=== PATIENT | male | born 1940 | race Caucasian/White ===

== ENCOUNTER 2021-06-27 12:06 | Emergency (ER) | payer OTHER ==
--- OUTSIDE RECORDS SUMMARY | 2021-06-27 12:13 | XMS REPORT | Continuity of Care Document ---
:1940 Author Organization [facility] t Address [address] [place] [address] Dr. Lezama [address] [place] [id number] Care Team Providers Name Role Phone Jayson MC Primary Care Physician CHAPARRO Attending Clinician Unavailable Pb De Leon NP Attending Clinician Martita Attending Clinician Unavailable MALLY Attending Clinician Unavailable Doctor Unassigned, Name Attending Clinician Unavailable Therapy, Covid Infusion Attending Clinician Unavailable Renuka Medina MD Attending Clinician Renuka MEDINA Attending Clinician Unavailable Miles MC Attending Clinician Jorden Medina PA-C Attending Clinician Danilo Canchola MD Attending Clinician Jayson MC Attending Clinician Nelida Rodríguez MD Attending Clinician Jayson MC Attending Clinician JAYSON Attending Clinician Unavailable Brayan Beauchamp MD Attending Clinician BRAYAN BEAUCHAMP Attending Clinician Unavailable JASIEL Attending Clinician Unavailable Jasiel RICHTER Attending Clinician CHAPARRO Admitting Clinician Unavailable MALLY Admitting Clinician Unavailable Payers Payer Name Policy Type Policy Number Effective Date Expiration Date S ource Problems Condition Condition Condition Status Onset Resolution Last Treating Co mments Source Name Details Category Date Date Treatment Clinician Date Delirium Delirium Disease Active Metho di 1-06 [facility] 00:[facility]: Hospita 00 l Essential Essential Disease Active Uni vers hypertensi hypertensi 7-14 it y of on on 00:00: [place] [facility] Carotid Carotid Disease Active Univers stenosis, stenosis, 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 00:00: [place] [facility] 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 00:00: [place] [facility] SDH SDH Disease Active Univers (subdural (subdural 5-12 ity of hematoma[place] hematoma[place] Allergies, Adverse Reactions, Alerts Allergy Allergy Status Severity Reaction(s) Onset Inactive Treating Comm ents Source Name Type Date Date Clinician Gurjit Donovan Active Other (See 2020-05 Blisters Methodi tazone ty to Comments) [address] adverse 00:00: the body Hospita reaction 00 l s to drug BUTINOLI DRUG Active Rash Univers NE INGREDI 5-15 ity of 00:00: [place] [facility] Butinoli Propensi Active Rash Univer s ne ty to 5-15 ity of adverse 00:00: [place] reaction 00 Medical s Branch Social History Social Habit Start Date Stop Date Quantity Comments Source Exposure to Not sure [facility] SARS-CoV-2 (event) Hospit al Cigarettes smoked 2021-05-13 2021-05-[address] current (pack per 00:00:00 00:00:00 Hospita l day) - Reported Cigarette 2021-05-13 2021-05-13 [facility] pack-years 00:00:00 00:00:00 Hospital Tobacco use and 2021-05-13 2021-05-13 Smokeless [facility] exposure 00:00:00 00:00:00 tobacco non-user Hospital Alcohol intake 2019-06-28 2019-06-28 Current University of 00:00:00 00:00:00 non-drinker of [facility] [place] alcohol Branch (finding) History of tobacco 2001-11-17 Smoker Univer sity of use 00:00:00 [facility] Sex Assigned At [birth year] [facility] 00:00:00 00:00:00 Hospital Smoking Status Start Date Stop Date Source Ex-smoker 2021-05-13 00:00:00 2021-05-13 00:00:00 [facility] Medications Ordered Filled Start Stop Current Ordering Indication Dosage Frequency Signature Comments Components Source Medication Medication Date Date Medication? Clinician (SIG) Name Name ascorbic Yes 1000mg Q.5D Take 1,000 M ethodi acid, 1-[address] vitamin C, 12:36: mouth 2 [facility] (VITAMIN C) 03 (two) l 500 MG times a tablet day. zinc Yes 1{capsu QD Take 1 Methodi sulfate 1-12 le} capsule by st (ZINCATE) 12:36: mouth Hospita 50 mg zinc 03 daily. l (220 mg) capsule cholecalcif Yes 2000U QD Take 2,000 Methodi donnell, 1-[address] vitamin D3, 12:36: mouth Hospi ta 400 unit 03 daily. l tablet megestroL 2021- Yes [id number] 40mg QD Take 1 M ethodi (MEGACE) 40 05-18 tablet (40 s t MG tablet 00:00: 05:59 mg total) Ho spita 00 :00 by mouth l daily for 30 days. vitamin E 2021- Yes 400U QD Take 1 Metho di 400 UNIT 05-[address] capsule 00:00: 05:59 (400 Units Hos bryson 00 :00 total) by l mouth daily for 30 days. carvediloL Yes 25mg Q.5D Take 25 mg M ethodi (COREG) 25 1-[address] MG tablet 12:36: (two) Hospita 32 times a l day with meals. lisinopriL Yes 40mg QD Take 40 mg M ethodi (PRINIVIL) 1-[address] 40 mg 12:36: daily. Hospita tablet 32 l furosemide Yes 80mg QD Take 80 mg M ethodi (LASIX) 80 1-[address] mg tablet 12:36: daily. Hospit a 32 l potassium Yes 20meq QD Take 20 Meth [place] chloride 1-[address] (K-DUR) 20 12:36: mouth Hospit a MEQ CR 32 daily. l tablet aspirin 325 0 Yes 325mg QD Take 325 M ethodi MG tablet 1-[address] 12:36: mouth Hospita 32 daily. l amLODIPine Yes 2.5mg QD Take 2.5 Me thodi (NORVASC) 1-[address] 2.5 mg 12:36: mouth Hospita tablet 32 daily. l clopidogreL Yes 75mg QD Take 75 mg Methodi (PLAVIX) [address] mg tablet 12:36: daily. Hospit a 32 l atorvastati 2021- Yes 40mg QD Take 1 Met hodi n (LIPITOR) 05-17 tablet (40 s t 40 mg 00:00: 05:59 mg total) Hospit a tablet 00 :00 by mouth l nightly for 30 days. levoFLOXaci 2021- No 500mg QD Take 1 Me thodi n 05-[address] (Levaquin) 00:00: 05:59 (500 mg Hos bryson 500 MG 00 :00 total) by l tablet mouth daily for 3 days. casirivimab 2020-05- No [id number] 1200mg 1,200 mg, Univers -imdevimab 06-27 Subcutaneo it y of (REGEN-COV 23:30: 22:15 [place], ONCE, [place] (EUA)) 00 :00 1 dose, On Medical injection e Branch (CO-FORMULA 04/26/21 TION) 1,200 at 1730, mg Routine iohexol 2019-05 No 100mL 100 mL, Unive rs (OMNIPAQUE 06-20 Intravenou it y of 350 21:30: 21:15 s, ONCE, 1 [place] BULK-100 00 :00 dose, Mon Medica l mL) 04/19/20 Branch injection at 1530, 100 mL Routine clindamycin 0 Yes [id number] 150mg Take 1 Univers 150 mg 8-13 capsule by ity of capsule 00:00: mouth 4 [place] 00 (four) Medical times Branch daily. clindamycin 0 Yes [id number] 150mg Take 1 Univers 150 mg 8-13 capsule by ity of capsule 00:00: mouth 4 [place] 00 (four) Medical times Branch daily. clindamycin 0 Yes [id number] 150mg Take 1 Univers 150 mg 8-13 capsule by ity of capsule 00:00: mouth 4 00 (four) Medical times Branch daily. clindamycin 2020-0 Yes [id number] 150mg Take 1 Univers 150 mg 8-13 capsule by ity of capsule 00:00: mouth 4 (four) Medical times Branch daily. clindamycin 2020-0 Yes [id number] 150mg Take 1 Univers 150 mg 8-13 capsule by ity of capsule 00:00: mouth 4 00 (four) Medical times Branch daily. clindamycin 2020-0 Yes [id number] 150mg Take 1 Univers 150 mg 8-04 capsule by ity of capsule 00:00: mouth 4 (four) Medical times Branch daily. mupirocin 2 2020-0 Yes [id number] Apply to Univers % ointment 8-04 area(s) 3 ity of 00:00: (three) [place] 00 times Medical daily. Branch clindamycin 2020-0 Yes [id number] 150mg Take 1 Univers 150 mg 8-04 capsule by ity of capsule 00:00: mouth 4 [place] (four) Medical times Branch daily. mupirocin 2 2020-0 Yes [id number] Apply to Univers % ointment 8-04 area(s) 3 ity of 00:00: (three) [place] 00 times Medical daily. Branch mupirocin 2 2020-0 Yes [id number] Apply to Univers % ointment 8-04 area(s) 3 ity of 00:00: (three) [place] 00 times Medical daily. Branch mupirocin 2 2020-0 Yes [id number] Apply to Univers % ointment 8-04 area(s) 3 ity of 00:00: (three) [place] 00 times Medical daily. Branch mupirocin 2 2020-0 Yes [id number] Apply to Univers % ointment 8-04 area(s) 3 ity of 00:00: (three) [place] 00 times Medical daily. Branch mupirocin 2 2020-0 Yes [id number] Apply to Univers % ointment 8-04 area(s) 3 ity of 00:00: (three) [place] 00 times Medical daily. Branch mupirocin 2 2020-0 Yes [id number] Apply to Univers % ointment 8-04 area(s) 3 ity of 00:00: (three) [place] 00 times Medical daily. Branch clindamycin 2020- No [id number] 150mg Take 1 Univers 150 mg 8-08 12-13 capsule by ity of capsule 00:00: 00:00 mouth 4 00 :00 (four) Medical times [place] daily. cephALEXin 2019- Yes [id number] 500mg Take 1 Univers 500 mg 7-27 tablet by ity of tablet 00:00: mouth [place] 00 (four) Medical times [place] daily. cephALEXin 2019- Yes [id number] 500mg Take 1 Univers 500 mg 7-27 tablet by ity of tablet 00:00: mouth [place] 00 (four) Medical times [place] daily. cephALEXin 2019- 2020- No [id number] 500mg Take 1 Univers 500 mg 7-27 08-04 tablet by ity of tablet 00:00: 00:00 mouth 4 [place] 00 :00 (four) Medical times [place] daily. cephALEXin 2019- 2020- No [id number] 500mg Take 1 Univers 500 mg 7-27 08- tablet by ity of tablet 00:00: 00:00 mouth 4 [place] 00 :00 (four) Medical times [place] daily. tetanus-dip 2020- No .5mL 0.5 mL, Un patricio htheria 06-29 Intramuscu ity o f toxoids 00:30: 23:29 lar, ONCE, Simon as (TDVAX) 2-2 00 :00 1 dose, Medic al Lf unit/0.5 Sat Branch mL 06/28/19 at injection 1830, 0.5 mL Routine azithromyci 2018-05 Yes [id number] 500mg Take 1 Univers n 500 mg 2-13 tablet by ity of tablet 00:00: mouth [place] 00 daily. Medical Branch azithromyci 2018-05 Yes [id number] 500mg Take 1 Univers n 500 mg 2-13 tablet by ity of tablet 00:00: mouth [place] 00 daily. Medical Branch azithromyci 2018-05 Yes [id number] 500mg Take 1 Univers n 500 mg 2-13 tablet by ity of tablet 00:00: mouth [place] 00 daily. Medical Branch azithromyci 2018-05 Yes [id number] 500mg Take 1 Univers n 500 mg 2-13 tablet by ity of tablet 00:00: mouth [place] 00 daily. Medical Branch azithromyci 2018-05 Yes [id number] 500mg Take 1 Univers n 500 mg 2-13 tablet by ity of tablet 00:00: mouth [place] 00 daily. Medical Branch azithromyci 2018-05 Yes [id number] 500mg Take 1 Univers n 500 mg 2-13 tablet by ity of tablet 00:00: mouth [place] 00 daily. Medical Branch azithminervayci 2018-05 2020- No [id number] 500mg Take 1 Univers n 500 mg 2-13 08-04 tablet by ity o f tablet 00:00: 00:00 mouth [place] 00 :00 daily. Medical Branch azithminervayci 2018-05 2020- No [id number] 500mg Take 1 Univers n 500 mg 2-13 08-04 tablet by ity o f tablet 00:00: 00:00 mouth [place] 00 :00 daily. Medical Branch aspirin 325 2018-05 Yes 325mg Take 325 U nivers mg tablet 1-13 mg by ity of 21:15: mouth [place] 21 daily. Medical Branch carvedilol 2018-05 Yes 25mg Take 25 mg U nivers 25 mg 1-13 by mouth 2 ity of tablet 21:15: (two) [place] 21 times Medical daily with Branch meals. KCL 2018-05 Yes 20meq Take 20 Univers (KLOR-CON 1-13 mEq by ity of M20) 20 mEq 21:15: mouth [place] tablet 21 daily. Medical Branch lisinopril 2018-05 Yes 40mg Take 40 mg U nivers 40 mg 1-13 by mouth ity of tablet 21:15: daily. [place] [address] Medical Branch furosemide 2018-05 Yes 80mg Take 80 mg U nivers 80 mg 1-13 by mouth ity of tablet 21:15: daily. [place] [address] Medical Branch aspirin 325 2018-05 Yes 325mg Take 325 U nivers mg tablet 1-13 mg by ity of 21:15: mouth [place] 21 daily. Medical Branch aspirin 325 2018-05 Yes 325mg Take 325 U nivers mg tablet 1-13 mg by ity of 21:15: mouth [place] 21 daily. Medical Branch carvedilol 2018-05 Yes 25mg Take 25 mg U nivers 25 mg 1-13 by mouth 2 ity of tablet 21:15: (two) [place] 21 times Medical daily with Branch meals. KCL 2018-05 Yes 20meq Take 20 Univers (KLOR-CON 1-13 mEq by ity of M20) 20 mEq 21:15: mouth [place] tablet 21 daily. Medical Branch lisinopril 2018-05 Yes 40mg Take 40 mg U nivers 40 mg 1-13 by mouth ity of tablet 21:15: daily. [place] [address] Medical Branch furosemide 2018-05 Yes 80mg Take 80 mg U nivers 80 mg 1-13 by mouth ity of tablet 21:15: daily. [place] [address] Medical Branch carvedilol 2018-05 Yes 25mg Take 25 mg U nivers 25 mg 1-13 by mouth 2 ity of tablet 21:15: (two) [place] 21 times Medical daily with Branch meals. aspirin 325 2018-05 Yes 325mg Take 325 U nivers mg tablet 1-13 mg by ity of 21:15: mouth [place] 21 daily. [facility] Branch carvedilol 2018-05 Yes 25mg Take 25 mg U nivers 25 mg 1-13 by mouth 2 ity of tablet 21:15: (two) [place] 21 times Medical daily with Branch meals. KCL 2018-05 Yes 20meq Take 20 Univers (KLOR-CON 1-13 mEq by ity of M20) 20 mEq 21:15: mouth [place] tablet 21 daily. Medical Branch KCL 2018-05 Yes 20meq Take 20 Univers (KLOR-CON 1-13 mEq by ity of M20) 20 mEq 21:15: mouth [place] tablet 21 daily. [facility] Branch lisinopril 2018-05 Yes 40mg Take 40 mg U nivers 40 mg 1-13 by mouth ity of tablet 21:15: daily. [place] [address] Medical Branch furosemide 2018-05 Yes 80mg Take 80 mg U nivers 80 mg 1-13 by mouth ity of tablet 21:15: daily. [address] Branch lisinopril 2018-05 Yes 40mg Take 40 mg U nivers 40 mg 1-13 by mouth ity of tablet 21:15: daily. [place] [address] Medical Branch furosemide 2018-05 Yes 80mg Take 80 mg U nivers 80 mg 1-13 by mouth ity of tablet 21:15: daily. [address] Branch aspirin 325 2018-05 Yes 325mg Take 325 U nivers mg tablet 1-13 mg by ity of 21:15: mouth [place] 21 daily. Medical Branch carvedilol 2018-05 Yes 25mg Take 25 mg U nivers 25 mg 1-13 by mouth 2 ity of tablet 21:15: (two) [place] 21 times Medical daily with Branch meals. KCL 2018-05 Yes 20meq Take 20 Univers (KLOR-CON 1-13 mEq by ity of M20) 20 mEq 21:15: mouth [place] tablet 21 daily. Medical Branch lisinopril 2018-05 Yes 40mg Take 40 mg U nivers 40 mg 1-13 by mouth ity of tablet 21:15: daily. [place] [address] Medical Branch furosemide 2018-05 Yes 80mg Take 80 mg U nivers 80 mg 1-13 by mouth ity of tablet 21:15: daily. [place] [address] Medical Branch aspirin 325 2018-05 Yes 325mg Take 325 U nivers mg tablet 1-13 mg by ity of 21:15: mouth [place] 21 daily. Medical Branch carvedilol 2018-05 Yes 25mg Take 25 mg U nivers 25 mg 1-13 by mouth 2 ity of tablet 21:15: (two) [place] 21 times Medical daily with Branch meals. KCL 2018-05 Yes 20meq Take 20 Univers (KLOR-CON 1-13 mEq by ity of M20) 20 mEq 21:15: mouth [place] tablet 21 daily. Medical Branch lisinopril 2018-05 Yes 40mg Take 40 mg U nivers 40 mg 1-13 by mouth ity of tablet 21:15: daily. [place] [address] Medical Branch furosemide 2018-05 Yes 80mg Take 80 mg U nivers 80 mg 1-13 by mouth ity of tablet 21:15: daily. [place] [address] Medical Branch aspirin 325 2018-05 Yes 325mg Take 325 U nivers mg tablet 1-13 mg by ity of 21:15: mouth [place] 21 daily. Medical Branch carvedilol 2018-05 Yes 25mg Take 25 mg U nivers 25 mg 1-13 by mouth 2 ity of tablet 21:15: (two) [place] 21 times Medical daily with Branch meals. KCL 2018-05 Yes 20meq Take 20 Univers (KLOR-CON 1-13 mEq by ity of M20) 20 mEq 21:15: mouth [place] tablet 21 daily. Medical Branch lisinopril 2018-05 Yes 40mg Take 40 mg U nivers 40 mg 1-13 by mouth ity of tablet 21:15: daily. [place] [address] Medical Branch furosemide 2018-05 Yes 80mg Take 80 mg U nivers 80 mg 1-13 by mouth ity of tablet 21:15: daily. [place] [address] Medical Branch aspirin 325 2018-05 Yes 325mg Take 325 U nivers mg tablet 1-13 mg by ity of 21:15: mouth [place] 21 daily. Medical Branch carvedilol 2018-05 Yes 25mg Take 25 mg U nivers 25 mg 1-13 by mouth 2 ity of tablet 21:15: (two) [place] [address] times Medical daily with Branch meals. KCL 2018-05 Yes 20meq Take 20 Univers (KLOR-CON 1-13 mEq by ity of M20) 20 mEq 21:15: mouth [place] tablet 21 daily. Medical Branch lisinopril 2018-05 Yes 40mg Take 40 mg U nivers 40 mg 1-13 by mouth ity of tablet 21:15: daily. [place] [address] Medical Branch furosemide 2018-05 Yes 80mg Take 80 mg U nivers 80 mg 1-13 by mouth ity of tablet 21:15: daily. [place] [address] Medical Branch aspirin 325 2018-05 Yes 325mg Take 325 U nivers mg tablet 1-13 mg by ity of 21:15: mouth [place] 21 daily. Medical Branch carvedilol 2018-05 Yes 25mg Take 25 mg U nivers 25 mg 1-13 by mouth 2 ity of tablet 21:15: (two) [place] [address] times Medical daily with Branch meals. KCL 2018-05 Yes 20meq Take 20 Univers (KLOR-CON 1-13 mEq by ity of M20) 20 mEq 21:15: mouth [place] tablet 21 daily. Medical Branch lisinopril 2018-05 Yes 40mg Take 40 mg U nivers 40 mg 1-13 by mouth ity of tablet 21:15: daily. [place] [address] Medical Branch furosemide 2018-05 Yes 80mg Take 80 mg U nivers 80 mg 1-13 by mouth ity of tablet 21:15: daily. [place] [address] Medical Branch aspirin 325 2018-05 Yes 325mg Take 325 U nivers mg tablet 1-13 mg by ity of 21:15: mouth [place] 21 daily. Medical Branch carvedilol 2018-05 Yes 25mg Take 25 mg U nivers 25 mg 1-13 by mouth 2 ity of tablet 21:15: (two) [place] 21 times Medical daily with Branch meals. KCL 2018-05 Yes 20meq Take 20 Univers (KLOR-CON 1-13 mEq by ity of M20) 20 mEq 21:15: mouth [place] tablet 21 daily. Medical Branch lisinopril 2018-05 Yes 40mg Take 40 mg U nivers 40 mg 1-13 by mouth ity of tablet 21:15: daily. [place] [address] Medical Branch furosemide 2018-05 Yes 80mg Take 80 mg U nivers 80 mg 1-13 by mouth ity of tablet 21:15: daily. [place] [address] Medical Branch aspirin 325 2018-05 Yes 325mg Take 325 U nivers mg tablet 1-13 mg by ity of 15:15: mouth [place] 21 daily. Medical Branch carvedilol 2018-05 Yes 25mg Take 25 mg U nivers 25 mg 1-13 by mouth 2 ity of tablet 15:15: (two) [place] 21 times Medical daily with Branch meals. KCL 2018-05 Yes 20meq Take 20 Univers (KLOR-CON 1-13 mEq by ity of M20) 20 mEq 15:15: mouth [place] tablet 21 daily. Medical Branch lisinopril 2018-05 Yes 40mg Take 40 mg U nivers 40 mg 1-13 by mouth ity of tablet 15:15: daily. [place] [address] Medical Branch furosemide 2018-05 Yes 80mg Take 80 mg U nivers 80 mg 1-13 by mouth ity of tablet 15:15: daily. [place] [address] Medical Branch aspirin 325 2018-05 Yes 325mg Take 325 U nivers mg tablet 1-13 mg by ity of 15:15: mouth [place] 21 daily. Medical Branch carvedilol 2018-05 Yes 25mg Take 25 mg U nivers 25 mg 1-13 by mouth 2 ity of tablet 15:15: (two) [place] [address] times Medical daily with Branch meals. KCL 2018-05 Yes 20meq Take 20 Univers (KLOR-CON 1-13 mEq by ity of M20) 20 mEq 15:15: mouth [place] tablet 21 daily. Medical Branch lisinopril 2018-05 Yes 40mg Take 40 mg U nivers 40 mg 1-13 by mouth ity of tablet 15:15: daily. [place] [address] Medical Branch furosemide 2018-05 Yes 80mg Take 80 mg U nivers 80 mg 1-13 by mouth ity of tablet 15:15: daily. [place] [address] Medical Branch aspirin 325 2018-05 Yes 325mg Take 325 U nivers mg tablet 1-13 mg by ity of 15:15: mouth [place] 21 daily. Medical Branch carvedilol 2018-05 Yes 25mg Take 25 mg U nivers 25 mg 1-13 by mouth 2 ity of tablet 15:15: (two) [place] 21 times Medical daily with Branch meals. KCL 2018-05 Yes 20meq Take 20 Univers (KLOR-CON 1-13 mEq by ity of M20) 20 mEq 15:15: mouth [place] tablet 21 daily. Medical Branch lisinopril 2018-05 Yes 40mg Take 40 mg U nivers 40 mg 1-13 by mouth ity of tablet 15:15: daily. [place] [address] Medical Branch furosemide 2018-05 Yes 80mg Take 80 mg U nivers 80 mg 1-13 by mouth ity of tablet 15:15: daily. [address] Immunizations Ordered Filled Immunization Date Status Comments Sour e Immunization Name Name Td 2019-06-28 Completed University of 00:00:00 [facility] Td 2019-06-28 Completed University of 00:00:00 [facility] Td 2019-06-28 Completed University of 00:00:00 [facility] Td 2019-06-28 Completed University of 00:00:00 [facility] Td 2019-06-28 Completed University of 00:00:00 [facility] Td 2019-06-28 Completed University of 00:00:00 [facility] Td 2019-06-28 Completed University of 00:00:00 [facility] Td 2019-06-28 Completed University of 00:00:00 [facility] Td 2019-06-28 Completed University of 00:00:00 [facility] Td 2019-06-28 Completed University of 00:00:00 [facility] Vital Signs Vital Name Observation Time Observation Value Comments Source Systolic blood 2021-04-26 23:00:00 181 mm[Hg] Univer sity of pressure [facility] Diastolic blood 2021-04-26 23:00:00 72 mm[Hg] Unive rsity of pressure [facility] Heart rate 2021-04-26 23:00:00 76 /[facility] Body temperature 2021-04-26 23:00:00 36.78 [facility] Respiratory rate 2021-04-26 23:00:00 18 /min [facility] Oxygen saturation in 2021-04-26 23:00:00 94 /min [facility] Arterial blood by [facility] [place] Pulse oximetry Branch Body height 2021-04-26 22:11:00 182.9 cm [facility] [place] [facility] Body weight 2021-04-26 22:11:00 118.842 kg [facility] [place] [facility] BMI 2021-04-26 22:11:00 35.53 kg/m2 [facility] [place] [facility] Systolic blood 2019-12-09 19:33:00 184 mm[Hg] Univer sity of pressure [place] [facility] Diastolic blood 2019-12-09 19:33:00 86 mm[Hg] Unive rsity of pressure [place] [facility] Heart rate 2019-12-09 19:32:00 79 /min [facility] [place] [facility] Body temperature 2019-12-09 19:32:00 36.89 Carol Univ ersity of [place] [facility] Body height 2019-12-09 19:32:00 180.3 cm [facility] [place] [facility] Body weight 2019-12-09 19:32:00 114.76 kg [facility] [place] [facility] BMI 2019-12-09 19:32:00 35.29 kg/m2 [facility] [place] [facility] Systolic blood 2019-06-28 23:55:00 179 mm[Hg] Univer sity of pressure [place] [facility] Diastolic blood 2019-06-28 23:55:00 88 mm[Hg] Unive rsity of pressure [place] [facility] Heart rate 2019-06-28 23:55:00 66 /min [facility] [place] [facility] Respiratory rate 2019-06-28 23:55:00 18 /min Univ ersity of [facility] Oxygen saturation in 2019-06-28 23:55:00 94 /min University of Arterial blood by [facility] [place] Pulse oximetry Branch Body temperature 2019-06-28 23:12:00 36.67 Carol Univ ersity of [place] [facility] Body height 2019-06-28 23:12:00 182.9 cm Universi [facility] [place] [facility] Body weight 2019-06-28 23:12:00 121.564 kg [facility] [place] [facility] BMI 2019-06-28 23:12:00 36.35 kg/m2 [facility] [place] [facility] Systolic blood 2019-06-16 22:19:00 192 mm[Hg] Univer sity of pressure [place] [facility] Diastolic blood 2019-06-16 22:19:00 85 mm[Hg] Unive rsity [facility] Heart rate 2019-06-16 22:19:00 81 /min [facility] Body temperature 2019-06-16 22:19:00 36.61 [facility] Body height 2019-06-16 22:19:00 182.9 cm [facility] Body weight 2019-06-16 22:19:00 134.265 kg [facility] BMI 2019-06-16 22:19:00 40.14 kg/m2 [facility] Systolic blood 2021-05-17 14:20:00 152 mm[Hg] [facility] pressure Diastolic blood 2021-05-17 14:20:00 70 mm[Hg] [facility] pressure Heart rate 2021-05-17 14:19:56 71 /min [facility] Respiratory rate 2021-05-17 14:19:56 18 /min [facility] Oxygen saturation in 2021-05-17 14:19:56 97 /min [facility] Arterial blood by Pulse oximetry Body temperature 2021-05-17 09:35:20 36 Carol [facility] Body height 2021-05-13 12:45:29 182.9 cm [facility] Body weight 2021-05-13 12:45:29 112.02 kg [facility] BMI 2021-05-13 12:45:29 33.49 kg/m2 [facility] Procedures Procedure Date / Time Performing Clinician Source Performed POC GLUCOSE 2021-05-17 14:16:00 [facility] TROPONIN T 2021-05-17 10:57:00 Kai [facility] POC GLUCOSE 2021-05-16 23:11:00 [facility] POC GLUCOSE 2021-05-16 17:56:00 [facility] POC GLUCOSE 2021-05-16 14:17:00 [facility] Zack [facility] ESTIMATED GFR 2021-05-16 11:29:00 [place] [facility] HC COMPLETE BLD COUNT 2021-05-16 11:29:00 Zack [facility] W/AUTO DIFF BASIC METABOLIC PANEL 2021-05-16 11:29:00 [facility] POC GLUCOSE 2021-05-16 02:46:00 [facility] POC GLUCOSE 2021-05-15 23:15:00 [facility] POC GLUCOSE 2021-05-15 18:37:00 [facility] FL FLUOROSCOPY OF 2021-05-15 17:00:48 Arnel Romo [facility] DIAPHRAGM NO FILMS POC GLUCOSE 2021-05-15 13:38:00 [facility] POC GLUCOSE 2021-05-15 12:02:00 [facility] HC COMPLETE BLD COUNT 2021-05-15 11:37:00 [facility] W/AUTO DIFF BASIC METABOLIC PANEL 2021-05-15 11:37:00 [facility] ESTIMATED GFR 2021-05-15 11:37:00 [facility] POC GLUCOSE 2021-05-15 08:25:00 [facility] POC GLUCOSE 2021-05-15 06:04:00 [facility] COVID-19 ANTI-SPIKE IGG 2021-05-14 09:49:00 Galdino [facility] ANTIBODY TITER Rosendo HC COMPLETE BLD COUNT 2021-05-14 09:49:00 [facility] W/AUTO DIFF BASIC METABOLIC PANEL 2021-05-14 09:49:00 [facility] VANCOMYCIN LEVEL, RANDOM 2021-05-14 09:49:00 [facility] COVID-19 SEROLOGY PATIENT 2021-05-14 09:49:00 Galdino [facility] SURVEILLANCE Rosendo ESTIMATED GFR 2021-05-14 09:49:00 [facility] POC GLUCOSE 2021-05-14 02:47:00 [facility] MRSA PCR 2021-05-13 23:10:00 [facility] TTE COMPLETE, W CONTRAST, 2021-05-13 22:43:00 [facility] W DOPPLER ([id number]) SYPHILIS TREPONEMA SCREEN 2021-05-13 18:18:00 [facility] WITH RPR CONFIRMATION (REVERSE ALGORITHM) US CAROTID DUPLEX 2021-05-13 16:11:00 [facility] BILATERAL VITAMIN B12 LEVEL 2021-05-13 14:09:00 [facility] FOLATE LEVEL 2021-05-13 14:09:00 [facility] LIPID PANEL 2021-05-13 14:09:00 [facility] THYROID STIMULATING 2021-05-13 14:09:00 [facility] HORMONE T4, FREE 2021-05-13 14:09:00 [facility] PROCALCITONIN 2021-05-13 14:09:00 [facility] TROPONIN T 2021-05-13 14:09:00 [facility] LACTIC ACID LEVEL, SEPSIS 2021-05-13 14:09:00 [facility] - NOW AND REPEAT 2X EVERY 3 HOURS LACTIC ACID LEVEL, SEPSIS 2021-05-13 09:51:00 [facility] - NOW AND REPEAT 2X EVERY 3 HOURS URINE CULTURE 2021-05-13 06:52:00 [facility] URINALYSIS SCREEN AND 2021-05-13 06:05:00 [facility] MICROSCOPY, WITH REFLEX TO CULTURE ECG ED PRELIMINARY 2021-05-13 05:43:14 [facility] INTERPRETATION CT HEAD WO CONTRAST 2021-05-13 05:14:48 [facility] XR CHEST 1 VW PORTABLE 2021-05-13 05:01:00 [facility] ARTERIAL BLOOD GAS 2021-05-13 04:56:00 [facility] RESPIRATORY PATHOGEN 2021-05-13 04:53:00 [facility] PANEL WITH COVID-19 RT-PCR BLOOD CULTURE, AEROBIC & 2021-05-13 04:05:00 [facility] ANAEROBIC BLOOD CULTURE, AEROBIC & 2021-05-13 04:01:00 [facility] ANAEROBIC HC COMPLETE BLD COUNT 2021-05-13 04:01:00 [facility] W/AUTO DIFF PROTHROMBIN TIME WITH INR 2021-05-13 04:01:00 [facility] PARTIAL THROMBOPLASTIN 2021-05-13 04:01:00 [facility] TIME (PTT) COMPREHENSIVE METABOLIC 2021-05-13 04:01:00 [facility] PANEL LACTIC ACID LEVEL, SEPSIS 2021-05-13 04:01:00 Zack Stearns [facility] - NOW AND REPEAT 2X EVERY 3 HOURS ESTIMATED GFR 2021-05-13 04:01:00 [facility] ECG 12-LEAD 2021-05-13 03:48:06 [facility] IMMTRAC2 CONSENT 2021-05-09 06:01:00 Doctor Unassigned, [facility] CONSENT/REFUSAL FOR 2021-04-26 06:01:00 Doctor Unassigned, [facility] DIAGNOSIS AND TREATMENT [facility] IR ANGIOGRAM CEREBRAL 2021-04-08 19:58:57 Kai Nix [facility] BILATERAL US GUIDED VASCULAR ACCESS 2021-04-08 19:58:57 [facility] Danilo HC COMPLETE BLD COUNT 2021-04-08 14:36:00 [facility] W/AUTO DIFF Danilo PROTHROMBIN TIME WITH INR 2021-04-08 14:36:00 [facility] Danilo PARTIAL THROMBOPLASTIN 2021-04-08 14:36:00 [facility] TIME (PTT) Danilo BASIC METABOLIC PANEL 2021-04-08 12:41:00 [facility] Danilo ESTIMATED GFR 2021-04-08 12:41:00 Jayson Kai [facility] spital COVID-19 QUALITATIVE 2021-04-05 21:28:00 Kai Nix [facility] RT-PCR CT ANGIOGRAM NECK 2020-04-19 21:13:38 Brent Nixammed [facility] HB CREATININE BLOOD 2020-04-19 20:56:00 Kai Nix [facility] NOTICE OF PRIVACY 2020-04-19 20:16:41 Doctor Unassigned, [facility] PRACTICES [facility] CONSENT/REFUSAL FOR 2020-04-19 20:16:22 Doctor Unassigned, [facility] DIAGNOSIS AND TREATMENT [facility] ASSIGNMENT OF BENEFITS 2020-04-19 20:16:02 [facility] [place] ED LACERATION REPAIR 2019-06-28 23:52:49 Lizy Weathers [facility] NOTICE OF PRIVACY 2019-06-28 23:06:16 Doctor Unassigned, [facility] PRACTICES [facility] CONSENT/REFUSAL FOR 2019-06-28 23:05:58 Doctor Unassigned, [facility] DIAGNOSIS AND TREATMENT [place] [facility] [place] POCT URINALYSIS 2019-06-16 00:00:00 Quynh [facility] Plan of Care Planned Activity Planned Date Details Comments Source Future Scheduled 2021-06-07 COVID-19 VACCINE (1) [facility] Test 16:41:15 [code = COVID-19 VACCINE (1)] Future Scheduled 2021-06-07 65+ P[facility]UMOCOCCAL [facility] Test 16:41:15 VACCINE (1 of 2 - PPSV23) [code = 65+ PNEUMOCOCCAL VACCINE (1 of 2 - PPSV23)] Future Scheduled 2021-06-07 SHINGLES VACCINES (#1) [facility] Test 16:41:15 [code = SHINGLES VACCINES (#1)] Future Scheduled 2021-06-07 INFLUENZA VACCINE [facility] Test 16:41:15 [code = INFLUENZA VACCINE] Encounters Start End Encounter Admission Attending Care Care Encounter Source Date/Time Date/Time Type Type Clinicians Facility Department ID 2021-06-23 2021-06-24 Inpatient [facility] [id number] [place] 00:00:00 00:00:[address] 2021-06-01 2021-06-01 Orders Moises, 1.2.840.1 [id number] Methodi 00:00:00 00:00:00 Only Layo [address]60.1.[address] Pb 3.430.2.7 Hospit a .3.682509 l .8 2021-05-31 2021-05-31 Transcribe Anders, 1.2.840.1 [id number] Methodi 00:00:00 00:00:00 Orders Clementina 93835.1.[address] 3.430.2.7 Hospit a .3.946226 l .8 2021-05-12 2021-05-17 Hospital MALLY, 1.2.840.1 [id number] [place] 00:00:00 00:00:00 Encounter ZACK 05203.1.[address] .3.189067 .8 2021-05-13 2021-05-13 Travel 1.2.840.1 1.2.137.079 [id number] Methodi 00:00:00 00:00:[address] 3.430.2.7 0.2.7.3.698 Ho spita .3.801458 084.8 l .8 2021-05-09 2021-05-09 Orders Doctor MAINE 1.2.840.114 [id number] [facility] 00:00:00 00:00:00 Only Unassigned, EMANUEL 350.1.13.10 [facility] 4.2.7.2.686 Simon as [phone] [facility] 009 Branch 2021-04-26 2021-04-26 Nurse Therapy, Adc Covid Infusion [facility] 1.2.840.114 [id number] [facility] 16:00:00 17:00:00 Visit Xavier Medina 350.1.13.10 [place] [id number] [facility] 053 Branch 2021-04-26 2021-04-26 Outpatient R [facility] [id number] -[id number] Univers 16:00:00 16:00:00 [id number] [facility] 2021-04-26 2021-04-26 Outpatient R ADAM, [facility] [id number] Univers 16:00:00 16:00:00 [facility] 2021-04-26 2021-04-26 Orders Doctor GROVE 1.2.840.114 [id number] Univers 00:00:00 00:00:00 Only Unassigned, EMANUEL 350.1.13.10 [place] [facility] 4.2.7.2.686 Simon as [phone] [address] 2021-04-25 2021-04-25 Telemedici Floyd Aquino 1.2.840.1 [id number] Methodi 14:27:52 14:55:[address] 3.430.2.7 Hospit a .3.478707 l .8 2021-04-21 2021-04-21 Orders Adam, 1.2.840.1 [id number] Methodi 00:00:00 00:00:00 Only Joyce Leonardo 73882.1.[address] 3.430.2.7 Hospit a .3.056272 l .8 2021-04-19 2021-04-19 Transcribe Sushant, 1.2.840.1 [id number] Methodi 00:00:00 00:00:00 [place] [address] Danilo 3.430.2.7 Hospit a .3.103515 l .8 2021-04-08 2021-04-08 Hospital Jayson, 1.2.840.1 [id number] Methodi 08:05:23 23:59:00 Encounter Kai 20144.1.1 410 s t 3.430.2.7 Hospit a .3.138811 l .8 2021-04-08 2021-04-08 Anesthesia Anne, 1.2.840.1 [id number] Methodi 12:05:00 13:58:00 Event Seamus Krause 11672.1.[address] 3.430.2.7 Hospit a .3.237667 l .8 2021-04-08 2021-04-08 Travel 1.2.840.1 1.2.266.143 [id number] Methodi 00:00:00 00:00:[address] 3.430.2.7 0.2.7.3.698 Ho spita .3.174911 084.8 l .8 2021-04-05 2021-04-05 Lab [facility], 1.2.840.1 [id number] Methodi 15:13:02 15:18:[address] 3.430.2.7 Hospit a .3.386271 l .8 2021-04-05 2021-04-05 Travel 1.2.840.1 1.2.132.796 [id number] Methodi 00:00:00 00:00:[address] 3.430.2.7 0.2.7.3.698 Ho spita .3.871159 084.8 l .8 2021-03-29 2021-03-29 Transcribe Anders, 1.2.840.1 [id number] 21 [id number] Methodi 00:00:00 00:00:00 Orders Clementina 06256.1.[address] 3.430.2.7 Hospit a .3.023227 l .8 2021-03-28 2021-03-28 Transcribe [facility], 1.2.840.1 [id number] Methodi 00:00:00 00:00:00 Orders Kai 02196.1.[address] 3.430.2.7 Hospit a .3.152377 l .8 2020-04-19 2020-04-19 [facility] 1.2.840.114 [id number] Univers 14:18:45 23:59:00 Encounter Kai Scanlon 350.1.13.10 [place] [id number] [address] 2020-04-19 2020-04-19 [facility] [id number] Univers 14:30:00 14:30:00 [facility] [id number] ity o f [facility] 2020-04-19 2020-04-19 Outpatient R [facility] [id number] Univers 00:00:00 00:00:00 [facility] ity o f [facility] 2019-12-18 2019-12-18 Telephone [facility] 1..840.114 [id number] Univers 00:00:00 00:00:00 [facility] 350.1.13.10 it y of [place] 4.2.7.2.686 Simon as Professio [id number] [address] 2019-12-09 2019-12-09 Outpatient R [facility] [id number]-20 Univers 14:30:00 14:30:00 GSIELA [id number] ity [facility] 2019-12-09 2019-12-09 Outpatient R [facility] [id number] Univers 14:30:00 14:30:00 [facility] 2019-12-09 2019-12-09 Office [facility] 1.2.840.114 [id number] Univers 14:10:05 14:25:05 Visit Gisela Scanlon 350.1.13.10 i ty [place] [phone] [address] 2019-12-08 2019-12-08 Telephone [facility] 1.2.840.114 [id number] Univers 00:00:00 00:00:00 [facility] 350.1.13.10 it y of [place] 4.2.7.2.686 [place] as Professio [phone] [address] One 2019-12-01 2019-12-01 Telephone [facility] 1.2.840.114 [id number] Univers 00:00:00 00:00:00 [facility] 350.1.13.10 it y of [place] 4.2.7.2.686 [place] as Professio [phone] [address] One 2019-09-17 2019-09-17 Outpatient R QUYNH [facility] [id number] Univers 15:45:00 15:45:00 GISELA [facility] 2019-06-28 2019-06-28 Emergency X [facility] ERT [id number] Univers 17:14:21 18:16:00 LIZY [facility] 2019-06-28 2019-06-[address] [facility] 1.2.419.349 [id number] Univers 17:14:21 18:16:00 Lizy Scanlon 350.1.13.10 i ty [place] [id number] [facility] [address]84 [address] 2019-06-28 2019-06-28 Orders Doctor MAINE 1.2.840.114 [id number] Univers 00:00:00 00:00:00 Only Unassigned, EMANUEL 350.1.13.10 ity of [place] [facility] 4.2.7.2.686 Simon as [phone] [facility] [address]9 [address] 2019-06-16 2019-06-16 Office [facility] 1.2.840.114 [id number] Univers 15:58:41 16:13:41 Visit [facility] 350.1.13.10 it y of [place] 4.2.7.2.686 [place] as essio [phone] [address] One Results Test Description Test Time Test Comments Results Result Comments Source POC glucose 2021-05-17 14:17:38 Test Item Value Reference Range Interpretation Comme nts POC glucose (test code = 111 mg/dL 65-99 H Ope rator Name: Jairo Corrigan [id number]) ID: [id number] hartable: [facility] Notified review scheduling coordinator Interpretation (test code = Abnormal 94203-9) [facility] [id number] 08:50:54 Test Item Value Reference Range Interpretation Comments MRSA PCR NOT DETECTED Specimen Inform ationSpecimen (test code = Source: [facility] ecimen Site: 11286-1) Not specified [facility] 12 [id number] 22:55:26 Test Item Value Reference Range Interpretation Comments Ventricular rate (test code = 253) Atrial rate (test code = 255) ID interval (test code = 266) QRSD interval (test code = 260) QT interval (test code = 264) QTC interval (test code = 265) P axis 1 (test code = 267) QRS axis 1 (test code = 268) T wave axis (test code = 270) EKG impression (test Sinus rhythm with 1st code = 273) degree AV block with occasional premature ventricular complexes-Cannot rule out Septal infarct , age undetermined-Electroni varsha Signed By Juana Medina MDshaw ([id number]) on 05/13/2021 4:55:23 PM [facility] ED Preliminary Interpretation - Not an [id number] 05:43:14 Test Item Value Reference Range Interpretation Comments MANI (test code = MANI) Russ Alvares MD 05/13/2021 12:42 [facility] Preliminary Interpretation - Not an OrderPerformed by: Russ Alvares MDAuthorized by: Russ Alvares MD ECG reviewed by ED Physician in the absence of a fire dispatcher: yes Previous ECG: Previous ECG: UnavailableInterpretat ion: Interpretation: abnormal Rate: ECG rate: 85 ECG rate assessment: normal Rhythm: Rhythm: sinus rhythm Ectopy: Ectopy: PVCs QRS: QRS axis: Normal QRS intervals: NormalConduction: Conduction: normal ST segments: ST segments: NormalOther findings: Other findings: prolonged qTc interval Lab Interpretation Abnormal (test code = 31611-1) [facility] [id number] 02:48:43 Test Item Value Reference Range Interpretation Comments Interpretation (test Negative results do code = 6535657) not preclude 2019-nCoV infection and should not be used as the sole basis for treatment or other patient management decisions. Negative results must be combined with clinical observations, patient history, and epidemiological information. 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 Focal mild to moderate s tenosis of the distal right commoncarotid artery. 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 Preliminary Report Dictated by Resident: Babs Sahu MD., have reviewed this study and agree with theabove report.CT ANGIOGRAPHY OF THE NECK. HISTORY: ? CTA of carotids COMPARISON: ?CT neck angiogram dated 09/18/2015. TECHNIQUE: Spiral CTA of the carotid vessels were obtained afteruncomplicated administration of 100 mL of Omnipaque IV contrast. Coronaland sagittal reconstructions were also submitted. CTA OF THE NECK FINDINGS: Classic three- vessel aortic arch branching configuration is noted.Scattered calcified atherosclerotic plaques are seen along the aortic arch.Mild stenosis of the proximal left subclavian artery with plaqueulceration. The [place] of the remaining major cervical cerebral vessels arewithin normal limits. Mixed sania cified and noncalcified atherosclerotic plaques are seen in theright carotid bulb and irregularity along the proximal right internalcarotid artery, results in approximately 30-40% stenosis. Focal mild tomoderate stenosis of the right distal common carotid artery. The left common carotid artery is patent and demonstrate no evidence ofnarrowing. Occlusion of the left external carotid artery is noted.Irregularity along the left proximal internal carotid artery is identified,though it is patent and demonstrate no evidence of narrowing using NASCETcriteria. A punctate calcified atherosclerotic plaques at the subclavian origin ofthe vertebral arteries mild narrowing. The vertebral arteries are otherwisepatent from their origins to the vertebrobasilar junction. Mildly dominantright vertebral artery. 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 Mild upper lobes centrilobular emphysematous changes are seen. Moderate cervical spine spondylosis is noted. [facility], Radiant Results Inft User - 04/19/2020 5:19 PM CSTCT ANGIOGRAPHY OF THE NECK.HISTORY: CTA of carotidsCOMPARISON: CT neck angiogram dated 09/18/2015.TECHNIQUE: Spiral CTA of the carotid vessels were obtained afteruncomplicated administration of 100 mL of Omnipaque IV contrast. Coronaland sagittal reconstructions were also submitted.CTA OF THE NECK FI NDINGS:Classic three-vessel aortic arch branching configuration is noted.Scattered calcified atherosclerotic plaques are seen along the aortic arch.Mild stenosis of the proximal left subclavian artery with plaqueulceration. The [place] of the remaining major cervical cerebral vessels arewithin normal gresham its.Mixed calcified and noncalcified atherosclerotic plaques are seen in theright carotid bulb and irregularity along the proximal right internalcarotid artery, results in approximately 30-40% stenosis. Focal mild tomoderate stenosis of the right distal common carotid artery. The left common carotid artery is patent and demonstrate no evidence ofnarrowing. Occlusion of the left external carotid artery is noted.Irregularity along the left proximal internal carotid artery is identified,though it is patent and demonstrate no evidence of narrowing using NASCETcriteria.A punctate calcified atherosclerotic plaques at the subclavian origin ofthe vertebral arteries mild narrowing. The vertebral arteries are otherwisepatent from their origins to the vertebrobasilar junction. Mildly dominantright vertebralartery. 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 Mild upper lobes centrilobular emphysematous changes are seen.Moderate cervical spine spondylosis is noted.IMPRESSIONMild stenosis of the proximal left subclavian artery with plaqueulceration. Focal mild to moderate stenosis of the distal right commoncarotid artery. 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 Preliminary Report Dictated by Resident: Babs Lawrence MD., have reviewed this study and agree with theabove report.[facility] 2020-04-19 21:29:00 Test Item Value Reference Range Interpretation Comments POCT Creatinine (test code = 0.9 mg/dL 0.6-1.3 8867991347) Lab Interpretation (test code = Normal 25146-8) [facility] [id number] 23:52:49Lizy Weathers FNP ? ? 06/28/2019 ?5:54 PMLaceration RepairDate/Time: 06/28/2019 5:52 PMPerformed by: Lizy Weathers FNPAuthorized by: Lizy Weathers FNP Consent: ?Consent obtained: ?Verbal ?Consent given by: ?Patient ?Risks discussed: ?Infection, need for additional repair, nerve damage, pain, poor cosmetic result, poor wound healing, vascular damage, tendon damage and retained foreign body ?Alternatives discussed: ?No treatment, delayed treatment, observation and referralAnesthesia (see MAR for exact dosages): ?Anesthesia method: ?NoneLaceration details: ?Location: ?Shoulder/arm ?Shoulder/arm location: ?L lower arm ?Length (cm): ?15Repair type: ?Repair type: ?SimpleExploration: ?Wound extent: no muscle damage noted, no nerve damage noted, no tendon damage noted and no vascular damage noted ? ?Contaminated: no ?Treatment: ?Area cleansed with: ?Hibiclens and saline ?Amount of cleaning: ?Standard ?Irrigation solution: ?Sterile saline ?Irrigation volume: ?500 ?Visualized foreign bodies/material removed: no ?Skin repair: ?Repair method: ?Steri-Strips ?Number of Steri-Strips: ?9Approximation: ?Approximation: ?ClosePost-procedure details: ?Dressing: ?Non-adherent dressing and tube gauze ?Patient tolerance of procedure: ?Tolerated well, no immediate complications [facility] URINALYSIS W SPECIFIC [id number] 22:22:00 Test Item Value Reference Range Interpretation Comments POCT U SP GRAV (test code = 1.015 mg/dl 1.005-1.025 3255) POCT PH U (test code = 3254) 6 mg/dl 5-8 POCT U LEUK EST (test code = trace Negative - Negative 3263) POCT U NIT (test code = 3262) negative Negative - Negative POCT U PROT (test code = negative Negative - Negative 3259) POCT U GLU (test code = 3256) negative Negative - Negative POCT U KETONE (test code = negative Negative - Negative 3258) POCT U UROBILI (test code = normal 0.2-1 3260) POCT U BILI (test code = negative Negative - Negative 3261) POCT U BLD (test code = 3257) negative Negative - Negative POCT U COLOR (test code = dark yellow 3266) POCT U APPEAR (test code = clear 3267) [facility] URINALYSIS W SPECIFIC [id number] 22:22:00 Test Item Value Reference Range Interpretation Comments POCT U SP GRAV (test code = 1.015 mg/dl 1.005-1.025 5) POCT PH U (test code = 3254) 6 mg/dl 5-8 POCT U LEUK EST (test code = trace Negative - Negative 3263) POCT U NIT (test code = 3262) negative Negative - Negative POCT U PROT (test code = negative Negative - Negative 325) POCT U GLU (test code = 3256) negative Negative - Negative POCT U KETONE (test code = negative Negative - Negative 3258) POCT U UROBILI (test code = normal 0.2-1 3260) POCT U BILI (test code = negative Negative - Negative 3261) POCT U BLD (test code = 3257) negative Negative - Negative POCT U COLOR (test code = dark yellow 3266) POCT U APPEAR (test code = clear 3267) [facility]
[2021-06-27] MEDS ORDERED: CLINDAMYCIN 900MG/D5W 900 MG/50 ML IVPB IV ONE (12:45)
[2021-06-27 13:12] LABS: Absolute Lymphocytes (CBC) 1.4 K/uL (0.7-4.9); Hematocrit 38.5 % (39.6-49.0); Lymphocytes % 27.3 % (15.3-44.8); MPV 7.3 fL (7.6-11.3); RBC Red Blood Cell Count 4.05 M/uL (4.33-5.43)
[2021-06-27 13:26] LABS: BUN Blood Urea Nitrogen 17 mg/dL (7-18); Bicarbonate 30 mmol/L (21-32); Glucose Level 98 mg/dL (74-106); Potassium 3.7 mmol/L (3.5-5.1); Sodium Level 140 mmol/L (136-145)
--- NOTE | 2021-06-27 13:37 | RAD REPORT ---
EXAM DESCRIPTION: US - UPPER EXTREMITY VENOUS UNILATE - 06/27/2021 1:26 pm CLINICAL HISTORY: Left arm pain and swelling COMPARISON: None. TECHNIQUE: Real-time sonographic evaluation of the left upper extremity deep venous systems was perf ormed. FINDINGS: Normal compressibility, flow augmentation, phasic flow and spontaneous flow are identified in the left upper extremity deep venous system. No intraluminal filling defects seen. Internal jugul ar and subclavian veins are normal as well. IMPRESSION: No DVT in the left upper extremity.
--- NOTE | 2021-06-27 13:51 | ER ---
Nurse's Notes [facility] Name: Alberto Grigsby Age: 81 yrs Sex: Male : 1940 Arrival Date: 06/27/2021 Time: 12:10 Bed Ultrasound Private MD: Patrice Clifton Diagnosis: Cellulitis of left upper limb Presentation: 06/27 12:19 Chief complaint: Patient states: Was recently released from [facility] for stent ph placement, reports pain, swelling, redness to IV site on R forearm, denies fever, stated that he called DR's office and they told him to come to the ED for antibiotics. Coronavirus screen:. Ebola Screen: No symptoms or risks identified at this time. Initial Sepsis Screen: Does the patient meet any 2 criteria? No. Patient's initial sepsis screen is negative. Does the patient have a suspected source of infection? No. Patient's initial sepsis screen is negative. Risk Assessment: Do you want to hurt yourself or someone else? Patient reports no desire to harm self or others. Onset of symptoms was June 27, 2021. 12:19 Method Of Arrival: Ambulatory ph 12:19 Acuity: NOHELIA 3 ph Historical: - Allergies: 12:22 butazolydinalka; ph - PMHx: 12:22 Diabetes - NIDDM; High Cholesterol; Hypertension; CVA; ph - Immunization history:: Client reports having NOT received the Covid vaccine. - Social history:: Smoking status: Patient denies any tobacco usage or history of. Screenin:36 Abuse screen: Denies threats or abuse. Nutritional screening: No deficits noted. vg1 Tuberculosis screening: No symptoms or risk factors identified. Fall Risk No fall in past 12 months (0 pts). No secondary diagnosis (0 pts). IV access (20 points). Ambulatory Aid- Crutches/Cane/Walker (15 pts). Gait- Normal/Bed Rest/Wheelchair (0 pts) Mental Status- Oriented to own ability (0 pts). Total Brennan Fall Scale indicates Low Risk Score (25-44 pts). Fall prevention measures have been instituted. Side Rails Up X 2 Placed close to Nursing Station. Assessment: 12:36 General: Appears in no apparent distress. comfortable, Behavior is calm, cooperative. vg1 Pain: Complains of pain in dorsal aspect of left forearm Pain currently is 2 out of 10 on a pain scale. Quality of pain is described as tender, Pain began gradually. Neuro: Level of Consciousness is awake, alert, obeys commands, Oriented to person, place, time, situation. Cardiovascular: Patient's skin is warm and dry. Respiratory: Airway is patent Respiratory effort is even, unlabored. GI: No signs and/or symptoms were reported involving the gastrointestinal system. : No signs and/or symptoms were reported regarding the genitourinary system. EENT: No signs and/or symptoms were reported regarding the EENT system. Derm: Skin is red, Skin temperature is warm on left inner forearm. Musculoskeletal: Circulation, motion, and sensation intact. 13:52 Reassessment: pt up for d/c, currently waiting for antibiotics to complete. vg1 14:42 Reassessment: Patient appears in no apparent distress at this time. No changes from vg1 previously documented assessment. Patient and/or family updated on plan of care and expected duration. Pain level reassessed. Patient is alert, oriented x 3, equal unlabored respirations, skin warm/dry/pink. Vital Signs: 12:19 BP 172 / 67; Pulse 73; Resp 18; Temp 98.2; Pulse Ox 97% on R/A; Weight 112.49 kg; ph Height 5 ft. 11 in. (180.34 cm); 12:36 BP 155 / 63; Pulse 78; Resp 17; Pulse Ox 97% on R/A; vg1 14:42 BP 150 / 70; Pulse 72; Resp 16; Pulse Ox 96% ; vg1 12:19 Body Mass Index 34.59 (112.49 kg, 180.34 cm) ph ED Course: 12:10 Patient arrived in ED. mr 12:10 Patrice Clifton MD is Private Physician. mr 12:22 Triage completed. ph 12:22 Arm band placed on. ph 12:24 Mukul Portillo PA is PHCP. cp 12:24 Mukul Pedersen MD is Attending Physician. cp 12:35 Joanne Deleon, JENNIFER is Primary Nurse. vg1 12:36 Patient has correct armband on for positive identification. Placed in gown. Bed in low vg1 position. Call light in reach. Side rails up X 1. 12:36 No provider procedures requiring assistance completed. vg1 12:54 Inserted saline lock: 22 gauge in right wrist, using aseptic technique. Blood collected.vg1 12:54 Initial lab(s) drawn, by me, sent to lab. First set of blood cultures drawn by me. vg1 13:07 UPPER EXTREMITY VENOUS UNILATE In Process Unspecified. EDMS 14:43 IV discontinued, intact, bleeding controlled, No redness/swelling at site. Pressure vg1 dressing applied. Administered Medications: 13:57 Drug: Clindamycin 900 mg Route: IVPB; Infused Over: 30 mins; Site: left wrist; vg1 14:30 Follow up: IV Status: Completed infusion; IV Intake: 50ml vg1 14:32 Not Given (Patient Refused): Ketorolac 30 mg IVP once vg1 Intake: 14:30 IV: 50ml; Total: 50ml. vg1 Outcome: 13:50 Discharge ordered by MD. za 14:43 Discharged to home via wheelchair. vg1 14:43 Condition: good 14:43 Discharge instructions given to patient, Instructed on discharge instructions, follow up and referral plans. medication usage, Demonstrated understanding of instructions, follow-up care, medications, Prescriptions given X 1. 14:43 Patient left the ED. vg1 Signatures: Dispatcher [employer] Valerie Tran mr Cara Sahni, RN RN Mukul Estrada, FARA PA Joanne Fischer, RN RN vg1
--- NOTE | 2021-06-27 13:51 | EDPHYS ---
Physician Documentation [facility] Name: Alberto Grigsby Age: 81 yrs Sex: Male : 1940 Arrival Date: 06/27/2021 Time: 12:10 Bed Ultrasound Private MD: Patrice Clifton ED Physician Mukul Pedersen HPI: 06/27 12:45 This 81 yrs old Male presents to ER via Ambulatory with complaints of Arm swelling. cp 12:45 The patient or guardian complains of swelling. cp 12:45 The complaints affect the left arm. Context: resulted from Patient reports having IV cp placed right arm 4 days ago at [facility] in [place] for right carotid stent placement. Onset: The symptoms/episode began/occurred yesterday, and became worse this morning. Historical: - Allergies: 12: butazolydinalka; ph - PMHx: 12:22 Diabetes - NIDDM; High Cholesterol; Hypertension; CVA; ph - Immunization history:: Client reports having NOT received the Covid vaccine. - Social history:: Smoking status: Patient denies any tobacco usage or history of. ROS: 12:50 Constitutional: Negative for body aches, chills, fever, poor PO intake. cp 12:50 Eyes: Negative for injury, pain, redness, and discharge. cp 12:50 Cardiovascular: Negative for chest pain, palpitations. 12:50 Respiratory: Negative for cough, shortness of breath, wheezing. 12:50 Abdomen/GI: Negative for abdominal pain, nausea, vomiting, and diarrhea. 12:50 MS/extremity: Positive for erythema, pain, swelling, tenderness, of the medial aspect right arm, Negative for injury or acute deformity, decreased range of motion, paresthesias. 12:50 Neuro: Negative for altered mental status, headache, weakness. 12:50 All other systems are negative. Exam: 12:55 Constitutional: The patient appears in no acute distress, alert, awake, non-toxic, well cp developed, well nourished. 12:55 Head/Face: Normocephalic, atraumatic. cp 12:55 Eyes: Periorbital structures: appear normal, Conjunctiva: normal, no exudate, no injection, Lids and lashes: appear normal, bilaterally. 12:55 ENT: External ear(s): are unremarkable, Nose: is normal, Mouth: Lips: moist, Oral mucosa: moist. 12:55 Chest/axilla: Inspection: normal. 12:55 Cardiovascular: Rate: normal. 12:55 Respiratory: the patient does not display signs of respiratory distress, Respirations: normal, no use of accessory muscles, no retractions, labored breathing, is not present. 12:55 Abdomen/GI: Exam negative for discomfort, distension, guarding, Inspection: abdomen appears normal. 12:55 Musculoskeletal/extremity: Extremities: noted in the left arm: noted mild erythema, swelling and induration medial aspect proximal forearm extending proximal to distal bicep. Vital Signs: 12:19 BP 172 / 67; Pulse 73; Resp 18; Temp 98.2; Pulse Ox 97% on R/A; Weight 112.49 kg; ph Height 5 ft. 11 in. (180.34 cm); 12:36 BP 155 / 63; Pulse 78; Resp 17; Pulse Ox 97% on R/A; vg1 14:42 BP 150 / 70; Pulse 72; Resp 16; Pulse Ox 96% ; vg1 12:19 Body Mass Index 34.59 (112.49 kg, 180.34 cm) ph MDM: 12:28 Patient medically screened. cp 13:00 Differential diagnosis: cellulitis, abscess, DVT, phlebitis. cp 13:50 Data reviewed: vital signs, nurses notes, lab test result(s), radiologic studies, cp ultrasound. 13:50 Counseling: I had a detailed discussion with the patient and/or guardian regarding: the cp historical points, exam findings, and any diagnostic results supporting the discharge/admit diagnosis, lab results, to return to the emergency department if symptoms worsen or persist or if there are any questions or concerns that arise at home. Response to treatment: the patient's symptoms have mildly improved after treatment, and as a result, I will discharge patient. 06/27 12:35 Order name: CBC with Diff; Complete Time: 13:40 cp 06/27 13:40 Interpretation: Normal except: RBC 4.05; HGB 13.0; HCT 38.5; RDW 17.0; MPV 7.3. cp 06/27 12:35 Order name: BMP; Complete Time: 13:40 cp 06/27 13:40 Interpretation: Reviewed. 06/27 12:35 Order name: Blood Culture Adult (2) cp 06/27 12:35 Order name: Procalcitonin cp 06/27 12:36 Order name: UPPER EXTREMITY VENOUS UNILATE; Complete Time: 13:40 EDMS 06/27 13:40 Interpretation: Report reviewed. cp 06/27 12:35 Order name: IV; Complete Time: 12:58 cp Administered Medications: 13:57 Drug: Clindamycin 900 mg Route: IVPB; Infused Over: 30 mins; Site: left wrist; vg1 14:30 Follow up: IV Status: Completed infusion; IV Intake: 50ml vg1 14:32 Not Given (Patient Refused): Ketorolac 30 mg IVP once vg1 Disposition Summary: 06/27/21 13:50 Discharge Ordered Location: Home cp Problem: new cp Symptoms: have improved cp Condition: Stable cp Diagnosis - Cellulitis of left upper limb cp Followup: cp - With: Private Physician - When: 1 - 2 days - Reason: Recheck today's complaints Discharge Instructions: - Discharge Summary Sheet cp - Cellulitis, Adult cp - Heat Therapy cp Forms: - Medication Reconciliation Form cp - Thank You Letter cp - Antibiotic Education cp - Prescription Opioid Use cp Prescriptions: - Clindamycin HCl 300 mg Oral Capsule - take 1 capsule by ORAL route every 6 hours for 10 days; 40 capsule; Refills: 0, cp Product Selection Permitted Signatures: Dispatcher [employer] Cara Atkinson, RN RN ph Mukul Portillo, PA PA Joanne Fischer, RN RN vg1 Corrections: (The following items were deleted from the chart) 12:36 12:35 Extremity Venous Uni [email or web address] ordered. EDCA EDCA 21:26 12:45 Context: resulted from Patient reports having IV placed right arm 4 days ago at [facility] in [place] for cardiac cath procedure. cp
[2021-06-27 14:48] VITALS: TEMP 98.2
[2021-06-27 14:51] VITALS: BP 150/70; O2SAT 96
== END 2021-06-27 14:43 | disposition home or self-care (01) ==
LOC: ER 12:06
DX: L03.114 Cellulitis of left upper limb (principal); E11.9 Type 2 diabetes mellitus without complications; I10 Essential (primary) hypertension; Z88.8 Allergy status to other drugs, medicaments and biological substances
CPT/HCPCS: 36415; 80048; 84145; 85025; 87040; 93971; 96365; 99284

== ENCOUNTER 2023-04-25 07:57 | Day surgery (SDC) | payer OTHER ==
--- NOTE | 2023-04-24 14:50 | RAD REPORT ---
EXAM DESCRIPTION: RAD - Chest Pa And Lat (2 Views) - 04/24/2023 2:41 pm CLINICAL HISTORY: Pre op pending mass removals Chest pain. TECHNIQUE: PA and lateral views of the chest were obtained. FINDINGS: The lungs are hyperexpanded compatible with COPD. The heart is upper limit of normal in si ze. No fracture or aggressive bony process. Small hiatal hernia. IMPRESSION: COPD without acute process identified. The USPSTF recommends annual screening for lung cancer with low-dose CT (LDCT) in adults aged 50 to 80 years who have a 20 pack-year smoking history and currently smoke or have quit within the past 15 years.
[2023-04-24 15:29] LABS: Absolute Lymphocytes (CBC) 1.6 K/uL (0.7-4.9); Hematocrit 42.3 % (39.6-49.0); Lymphocytes % 22.9 % (15.3-44.8); MCV 95.6 fL (80-100); MPV 7.5 fL (7.6-11.3); Platelets 230 thou/uL (152-406); RBC Red Blood Cell Count 4.42 M/uL (4.33-5.43)
[2023-04-24 15:43] LABS: Protime INR 1.24
[2023-04-25] MEDS ORDERED: CEFAZOLIN SODIUM 2 GM/VIAL ONE (08:40)
[2023-04-25] MEDS ORDERED: Ringers Lactate 1,000 ML IV ONE (08:41)
[2023-04-25] MEDS ORDERED: ONDANSETRON 4 MG/2 ML VIAL ONE (10:38)
[2023-04-25] MEDS ORDERED: propofoL 200 MG/20 ML VIAL IV ONE (10:38)
[2023-04-25] MEDS ORDERED: FENTANYL CITR 100 MCG/2 ML ONE (10:39)
[2023-04-25] MEDS ORDERED: LIDOCAINE 2% MPF 5 ML VIAL ONE (10:39)
[2023-04-25] MEDS ORDERED: EPHEDRINE SULF 50 MG/ML VIAL ONE (11:20)
[2023-04-25] MEDS ORDERED: dexAMETHasone 4 MG/ML VIAL ONE (11:20)
--- NOTE | 2023-04-25 11:44 | P.OP ---
Date of Service: 04/25/23 Preop diagnosis: Lower back mass, right posterior mass, right posterior skin tags x 2 and axillary skin tag x 1 Postop diagnosis: Same Procedure performed: Wide excision lower back mass 4 x 2 cm with layered closure, wide excision right posterior mass 4 x 2 cm with layered closure and excision of skin tags x 32 in the right posterior arm and 1 in the right axilla Surgeon: Akhil Scruggs MD Antique Repairer: ALEX Hartman Estimated blood loss: Minimal Specimen: Right posterior arm mass, skin tags x 3 and back mass Findings: As above Anesthesia: General Complications: None Drains: None Fluids and blood products: Nonapplicable Disposition: Recovery room Operative note: Patient brought to the OR and placed in supine position. General anesthesia begun. Patient placed in the left lateral position and then prepped and draped in usual sterile fashion. Marcaine 0.5% infiltrated locally. 15 blade used to make a 4 x 2 cm incision to excise this raised mass in the right posterior arm. Subcutaneous tissue divided. Entire mass excised and sent to pathology as specimen. Wound irrigated and bleeding controlled cautery. Flaps created. 3-0 chromic used to reapproximate subcutaneous tissue. And 5-0 nylon used to close skin. The 3 skin tags were excised with cautery. Bleeding was controlled cautery. Then on the lower back, a 4 x 2 cm incision was made around this nonhealing cyst. Subcutaneous tissue divided and bleeding controlled cautery. Entire cyst excised and sent to pathology as specimen. Wound irrigated and bleeding controlled with cautery. Flaps created. 2-0 chromic used to approximate subcutaneous tissue. 3-0 nylon used to close skin. Sterile dressing applied and patient awakened. Patient taken to recovery room in good general condition. CC:
[2023-04-25] MEDS ORDERED: HYDROCODONE/APAP 7.5/325 MG TAB PO PRN (11:48)
--- NOTE | 2023-04-25 12:51 | EKG ---
Test Date: 2023-04-24 Test Time: 15:41:31 Customer Experience Intern: KANU MEASUREMENT RESULTS: Intervals: Rate: 80 VT: 244 QRSD: 118 QT: 404 QTc: 465 [place]: P: 62 VT: 244 QRS: 61 T: 94 INTERPRETIVE STATEMENTS: Sinus rhythm with 1st degree AV block Possible Left atrial enlargement Septal infarct, age undetermined Abnormal ECG Compared to ECG 11/06/2015 21:43:58 First degree AV block now present Myocardial infarct finding still present Electronically Signed On 04-25-23 12:49:29 DIVERSIFIED CROPS FARMWORKER by Freddie Shook
[2023-04-25 14:47] VITALS: BP 165/85; TEMP 97.8; O2SAT 96
== END 2023-04-25 14:15 | disposition home or self-care (01) ==
LOC: OR 07:57
PROVIDERS: ATTEND Surgery
PROC: 0JBD0ZZ Excision of Right Upper Arm Subcutaneous Tissue and Fascia, Open Approach (ICD-10-PCS; 2023-04-25)
PROC: 0HBBXZZ Excision of Right Upper Arm Skin, External Approach (ICD-10-PCS; 2023-04-25)
PROC: 0JB70ZZ Excision of Back Subcutaneous Tissue and Fascia, Open Approach (ICD-10-PCS; principal; 2023-04-25 09:30)
DX: L72.9 Follicular cyst of the skin and subcutaneous tissue, unspecified (principal); L82.1 Other seborrheic keratosis; L91.8 Other hypertrophic disorders of the skin; R22.31 Localized swelling, mass and lump, right upper limb; I10 Essential (primary) hypertension; E66.9 Obesity, unspecified; I25.10 Atherosclerotic heart disease of native coronary artery without angina pectoris; E78.5 Hyperlipidemia, unspecified
CPT/HCPCS: 93005; 85025; 80048; 36415; 85610; 88304 ×2; 88305; 85730; 71046; 11404 ×2; 11200; J2704; J1100; J2001; J3010; J2405; J7120